=== PATIENT | male | born 1940 | race Caucasian/White ===

== ENCOUNTER 2017-10-14 06:43 | Day surgery (SDC) | payer MEDICARE ==
[2017-10-14] MEDS: ACETYLCHOLINE OPHTH SOLN 1% 2ML (MIOCHOL-E) As Ordered (06:42)
[~2017-10-14 06:43] MED LIST: ACETAMINOPHEN 325 MG TAB PO; LIDOCAINE 1% MDV 20ML VIAL SQ; SLF 3 ML SYR IV
[2017-10-14] MEDS ORDERED: PHENYLEPHRINE HCL 10 % OPHTH. SOL 5ML OD (07:00)
[2017-10-14] MEDS ORDERED: PROPARACAINE 0.5% OPHTH SOL 15ML OD (07:01)
[2017-10-14] MEDS: CYCLOPENTOLATE 2% OPHTH SOLN 2ML BTL OD (07:40)
[2017-10-14] MEDS: LIDOCAINE 3.5 % 1ML OPHTH TOPICAL GEL OU (07:40)
[2017-10-14] MEDS: OFLOXACIN 0.3 % (OCUFLOX) OPTH SOL 5ML OD (07:40)
[2017-10-14] MEDS: PHENYLEPHRINE 2.5% OPHTH SOL 2ML OD (07:40)
[2017-10-14] MEDS: TROPICAMIDE 1% OPHTH SOLN 2ML OD (07:40)
[2017-10-14] MEDS: POVIDONE-IODINE 5% OPHTH PREP SOL 30ML As Ordered (08:23)
[2017-10-14] MEDS ORDERED: fentaNYL 100 MCG/2 ML INJECTION (J3010) As Ordered (08:25)
[2017-10-14] MEDS ORDERED: MIDAZOLAM INJ 2 MG/2 ML VIAL (J2250) As Ordered (08:25)
[2017-10-14] MEDS: LIDOCAINE 1% SDV 5 ML VIAL As Ordered (08:34)
[2017-10-14] MEDS: HEALON DUET (HEALON 10MG/ML 0.55ML & HEALON ENDOCOAT 30MG/ML 0.85ML) As Ordered (08:34)
[2017-10-14] MEDS: CEFUROXIME 1MG/0.1ML INTRACAMERAL INJ As Ordered (08:34)
[2017-10-14] MEDS: BALANCED SALT IRRIGATION SOLUTION 500ML BAG (FOR OR EYE MACHINE) As Ordered (08:35)
[2017-10-14] MEDS: AcetaZOLAMIDE 500 MG ER CAP PO (08:55)
[2017-10-14] MEDS: KETOROLAC 0.5% OPHTH SOLN OD (08:55)
[2017-10-14] MEDS ORDERED: TRIMETHOBENZAMIDE 300 MG CAP PO (09:00)
== END 2017-10-14 09:18 | disposition home or self-care (01) ==
LOC: M SDC 06:43
DX: H25.11 Age-related nuclear cataract, right eye (principal); I10 Essential (primary) hypertension; M10.9 Gout, unspecified; E78.5 Hyperlipidemia, unspecified; Z86.73 Personal history of transient ischemic attack (TIA), and cerebral infarction without residual deficits; Z79.82 Long term (current) use of aspirin; Z79.899 Other long term (current) drug therapy; Z87.891 Personal history of nicotine dependence
CPT/HCPCS: 66984